=== PATIENT | male | born 1985 | race Two or more races ===

== ENCOUNTER 2024-05-16 14:41 | Emergency (ER) | payer MEDICAID, SELFPAY ==
[2024-05-16 14:44] VITALS: BMI 36.6
[2024-05-16 15:08] VITALS: BP 133/99; PULSE 98; RESP 18; TEMP 36.9; O2SAT 99
--- NOTE | 2024-05-16 15:11 | XR_ITS ---
Examination: CT brain head without contrast. 2-D sagittal coronal reconstructions Date and time of exam:May 16, 2024 1541 hours INDICATIONS: Hit by golf ball in the forehead today, laceration CTDI: vol (mGy):62.2 DLP: (mGycm):1296 Technique: Multiple CT axial sections of the brain have been obtained, 5 mm slice thickness. Contrast has not been administered. 2-D sagittal, coronal reconstructions have been obtained Low dose protocols were performed. One or more of the following dose reduction techniques were used; automated exposure control, adjustment of the mA and/or KV according to patient size, use of iterative reconstruction technique. Findings: No significant ventricular enlargement. Intra-axial or extra-axial hemorrhage density is not seen. No mass effect or midline shift Basal cisterns are not remarkable. Fourth ventricle is midline. Cranial vault intact. Impression: Negative for acute hemorrhage, mass effect or midline shift
--- NOTE | 2024-05-16 16:40 | PD.EDHEAD ---
ED Head Injury RME/HPI General Chief complaint: Head Injury Stated complaint: Trauma to right forehead, Thinks it was a golf bal Time Seen by Provider: 05/16/24 15:00 Source: patient Arrival date/time: 05/16/24 14:41 This is a 38-year-old male who presented to the emergency department with complaints of a head injury today. [place] suddenly an object hit the right side of his forehead. He did see a golf ball bounced from the cement. He has a laceration and bruising to the frontal right side of his head. He denies any loss of consciousness, mild headache. No other injuries reported. Mode of arrival: ambulatory Limitations: no limitations Related Data Allergies Allergy/AdvReac Type Severity Reaction Status Date / Time No Known Allergies Allergy Verified 05/16/24 14:43 Review of Systems Review of Systems Systems Reviewed: All systems reviewed, normal except as documented Narrative Review of Systems: Gen: No fever, no chills, no weight loss EYES: No discharge, no visual changes, no pain HEENT: No ear pain, no congestion, no sore throat PULM: No shortness of breath, no cough, no congestion CV: No chest pain, no dyspnea on exertion, no palpitations GI: No nausea, no vomiting, no diarrhea, no pain, no constipation : No frequency, no urgency,? no dysuria Musc/skel: No joint pain, no back pain Skin: +skin lace Psyc: No hallucinations, no depression Heme/Lymph: No easy bleeding or bruising tendencies Neuro: No weakness, +headache, +lac ED Exam General Limitations: Present no limitations General appearance: Present alert and in no apparent distress Expanded Head Exam Head exam physical: Present laceration and contusion Head image:  1. +small 0.5 cm horizontal lac anterior right scalp, superficial. no bleeding Eye Eye exam: Present normal appearance, PERRL and EOMI ENT ENT exam: Present normal exam, normal oropharynx and mucous membranes moist Neck Neck exam: Present normal inspection, full ROM and trachea midline Chest Chest inspection: Present normal inspection and symmetric chest wall rise Respiratory Respiratory exam: Present normal lung sounds bilaterally Cardiovascular Cardiovascular exam: Present regular rate, normal rhythm and normal heart sounds Abdominal Exam Abdominal exam: Present soft and normal bowel sounds Extremities Exam Extremities exam: Present normal inspection and full ROM Back Exam Back exam: Present normal inspection and full ROM Neurological Exam Neurological exam: Present alert, oriented X3 and CN II-XII intact Psychiatric Psychiatric exam: Present normal affect and normal mood Skin Skin exam: Present warm, dry, intact and normal color Course Quality Measures none Orders Category Date Time Status Stapler to Beside ONCE Care 05/16/24 15:11 Completed Wound Care NOW Care 05/16/24 15:[address] head/brain wo con Stat Exams 05/16/24 15:11 Completed Vital Signs Vital signs: Vital Signs Temperature 98.5 F 05/16/24 15:08 Pulse Rate 98 05/16/24 15:08 Respiratory Rate 18 05/16/24 15:08 Blood Pressure 133/99 H 05/16/24 15:08 Pulse Oximetry (%) 99 05/16/24 15:08 Oxygen Delivery Method Room Air 05/16/24 15:08 Head Injury MDM Narrative MDM Narrative:: Using sterile technique, patients wound cleansed, no anesthesia used. 0.5cm superficial wound clease with 150ml of normal saline, alllowed to dry, then used 3 steri strips with Dermabond for complete closure of wound. Patient tolerated procedure well. Patient data External records reviewed:: [facility] previous records Clinical information provided by:: patient Social determinants that could affect healthcare access:: none Patient has the following chronic illnesses:: no How is presenting disease/condition affected by chronic disease/condition?: no chronic disease Evaluation data The following diagnostics were reviewed and interpreted by me:: radiology exam(s) Lab and/or radiology exams considered but not ordered:: no Interpretation Summary: Examination: CT brain head without contrast. 2-D sagittal coronal reconstructions Date and time of exam:May 16, 2024 1541 hours INDICATIONS: Hit by golf ball in the forehead today, laceration CTDI: vol (mGy):62.2 DLP: (mGycm):1296 Technique: Multiple CT axial sections of the brain have been obtained, 5 mm slice thickness. Contrast has not been administered. 2-D sagittal, coronal reconstructions have been obtained Low dose protocols were performed. One or more of the following dose reduction techniques were used; automated exposure control, adjustment of the mA and/or KV according to patient size, use of iterative reconstruction technique. Findings: No significant ventricular enlargement. Intra-axial or extra-axial hemorrhage density is not seen. No mass effect or midline shift Basal cisterns are not remarkable. Fourth ventricle is midline. Cranial vault intact. Impression: Negative for acute hemorrhage, mass effect or midline shift Medications / Prescriptions Medications or Prescriptions considered but not ordered:: no Medication administrations:: no Consultations Consultation(s) initiated? (list below): No Diagnosis Differential diagnosis head injury: concussion without loss of consciousness, closed head injury, subdural hematoma and concussion with loss of consciousness Most likely diagnosis given after review of the tests above:: Scalp laceration. Head contusion. Admission Indicated Admission indicated?: not indicated Admission Request Was there a request for admission?: No Disposition Plan Disposition Plan: Discharge Discharge Attestation Discharge Attestation: The patient and all family members were given an opportunity to ask questions and understood the discharge instructions. Discharge instructions specifically effects, indications for sooner follow up or return to the emergency department, and the expected course of current diagnosis. Patient condition: Stable Discharge Plan Plan Patient Disposition: HOME (Self Care) Patient condition on transfer: Stable Prescriptions/Referrals Referrals: No Primary/Family,Physician [Primary Care Provider] - In 1 week Problem List Clinical Impression: Closed head injury, Glued skin wound Patient/Caregiver Discharge Instructions Discharge Activity: activity as tolerated Education Materials: ED Head Injury (Adult), ED Laceration, Face: Skin Glue Additional Instructions: Your CT of your brain is negative for any bleeding or broken skull. Please follow-up with your primary doctor We did apply some skin glue please do not pick or peel it will fall on its own. Return if there is any worsening symptoms or change in condition. Print Language: Tajik Stand Alone Forms: Brianna Award Info., Patient Portal Info Letter PA/GARRETT Supervising Physician BRIDGETTE/GARRETT Supervising Physician: dr. silvestre
== END 2024-05-16 17:47 | disposition home or self-care (01) ==
PROVIDERS: Emergency Provider Emergency Medicine
DX: S01.01XA Laceration without foreign body of scalp, initial encounter (principal); W21.04XA Struck by golf ball, initial encounter; Y93.01 Activity, walking, marching and hiking; Y92.39 Other specified sports and athletic area as the place of occurrence of the external cause
CPT/HCPCS: 70450; 99284